=== PATIENT | female | born 1930 | race Caucasian/White ===

== ENCOUNTER 2016-04-25 13:52 | Emergency (ER) | payer OTHER ==
--- NOTE | 2016-04-25 15:47 | EDPHY ---
H & P Time Seen by Provider: 04/25/16 15:26 HPI/ROS: CHIEF COMPLAINT: right thumb redness swelling HISTORY OF PRESENT ILLNESS: Patient is an 85-year-old female who presents to the emergency department with irritation on her right thumb from the cast. Patient had a fall and sustained bilateral wrist fractures on 04/09/2016. She had surgery by Dr. Guo. Since the surgery she has been having issues with fiberglass cast rubbing on the medial aspect of her proximal thumb. Patient's son and nursing staff at the group home been trying the padded. Patient's son has not seen his mother for few days. When he saw her today he saw the cast was digging into her thumb. Her thumb is at the site of fiberglass. There is a small skin break down. She has had no fevers or chills. No other complaints. REVIEW OF SYSTEMS: My complete review of systems is negative except as mentioned in the HPI. Past Medical/Surgical History: Includes urinary tract infection, hypercholesterolemia, atrial fibrillation, hypertension, dementia Past surgical history: Includes numerous orthopedic surgeries. Recent bilateral wrist surgery for followed by Dr. Guo Social history: Patient is in group home facility Smoking Status: Never smoked Physical Exam: Vitals noted General Appearance: Alert and no distress. Head: Pupils equal. Normal. Respiratory: No respiratory distress. Cardiac: regular rate and rhythm. Extremities: patient has bilateral forearm fiberglass short-arm cast. Patient' s left forearm cast and hand appear normal. Patient's right proximal medial thumb is red. There is skin breakdown and contact with the fiberglass splint. No streaking up the arm. Skin: No rashes or lesions. Neuro: Alert. Normal mood and affect. Constitutional: Initial Vital Signs Temperature (C) 36.6 C 04/25/16 14:10 Heart Rate 83 04/25/16 14:10 Respiratory Rate 16 04/25/16 14:10 Blood Pressure 167/87 H 04/25/16 14:10 O2 Sat (%) 89 L 04/25/16 14:10 O2 Delivery Mode Room Air Allergies/Adverse Reactions: Penicillins Allergy (Mild, Verified 03/15/16 16:23) Other-Enter Comments Sulfa (Sulfonamide Antibiotics) Allergy (Mild, Verified 05/04/15 20:34) Home Medications: Medication Instructions Recorded Rosuvastatin Calcium [Crestor 5mg] 5 mg PO DAILY 05/04/15 Aspirin [Aspirin 81mg (*)] 81 mg PO DAILY 03/15/16 Donepezil HCl [Aricept 5 MG (*)] 5 mg PO DAILY 03/15/16 Herbals/Supplements -Info Only 1 ea PO DAILY 03/15/16 Hydrocodone/Acetaminophen [Ferdinand 1 each PO Q6 PRN 03/15/16 5/325 (*)] Venlafaxine Xr [Effexor Xr 37.5MG 37.5 mg PO DAILY 03/15/16 (*)] Acetaminophen [Tylenol 325mg (*)] 650 mg PO Q6HRS PRN 03/22/16 OLANZapine DISINTEGR [ZyPREXA 2.5 - 5 mg PO HS PRN #0 tab 03/24/16 ZYDIS (*)] Magnesium Oxide [Magnesium Oxide 500 mg PO DAILY 03/29/16 500 mg] Sennosides/Docusate Sodium 1 each PO DAILY 03/29/16 [SENEXON-S TABLET] Metoprolol Tartrate [Lopressor 25 12.5 mg PO BID #60 tab 03/31/16 mg (*)] levOFLOXACIN [levAQUIN (*)] 750 mg PO Q2D@10 #0 tab 03/31/16 Enoxaparin [Lovenox 60 MG (*)] 50 mg SC BID #0 syr 04/01/16 Warfarin Sodium [Coumadin 2.5MG 2.5 mg PO DAILY AT 4PM #0 tab 04/01/16 (*)] Cephalexin [Keflex (*)] 500 mg PO QID 5 Days 04/25/16 Medical Decision Making ED Course/Re-evaluation: In the emergency department I discussed the findings with the son. The patient' s son states this is been a problem since the cast was placed. I discussed etiologies of redness. He feels strongly that this is secondary to the fiberglass rubbing on the patient's skin. He did not want imaging studies. The fiberglass splint was remove from the area of irritation with a saw. On evaluation post partial cast removal patient's own is erythematous with mild swelling. There is skin breakdown. This was treated with bacitracin and a dressing. Patient will be given Keflex for possible early cellulitis from skin breakdown. I discussed the plan with the patient in her son. I gave him warnings prior to leaving. She will return with worsening symptoms. She has an appointment this week with Dr. Guo. Differential Diagnosis: Differential includes but is not limited to skin irritation from cast, cellulitis, abscess, hardware disruption, deep compartment infection. The patient appears well. She does not appear septic or toxic. Departure - Departure Disposition: Home, Routine, Self-Care Clinical Impression: Skin breakdown, Cellulitis of thumb, right Condition: Good Instructions: Cellulitis (ED) Additional Instructions: Return with increasing redness, pain, swelling, fever or any other concerns. Take your entire course of antibiotics. Referrals: Purvi Martinez MD [Primary Care Provider] - As per Instructions Olman Guo MD [Medical Doctor] - 2-3 days without fail Prescriptions: Cephalexin [Keflex (*)] 500 mg PO QID 5 Days
[2016-04-25] MEDS ORDERED: CEPHALEXIN 500 MG CAP PO ONE ×2 (16:27→16:40)
[2016-04-25 16:49] VITALS: BP 132/7; PULSE 63; RESP 20; TEMP 98.2; O2SAT 96
== END 2016-04-25 16:49 | disposition home or self-care (01) ==
DX: L03.011 Cellulitis of right finger (principal); L98.8 Other specified disorders of the skin and subcutaneous tissue; I10 Essential (primary) hypertension; Z79.82 Long term (current) use of aspirin; Z79.01 Long term (current) use of anticoagulants